=== PATIENT | male | born 1970 | race Asian ===

== ENCOUNTER 2023-03-30 14:53 | Emergency (ER) | payer OTHER, SELFPAY ==
--- NOTE | ~2023-03-30 | XR_ITS ---
EXAMINATION: XR CHEST CLINICAL INFORMATION: Chest pain COMPARISON: None available. TECHNIQUE: Frontal view of the chest was obtained. FINDINGS: Heart size normal with normal caliber pulmonary vessels. Lungs grossly clear given portable AP technique. I would recommend a well centered PA and lateral when clinically feasible. No pleural effusions are seen on this single view. public health policy analyst leads present. XR/XR chest 1V IMPRESSION: Within normal limits.
--- NOTE | 2023-03-30 14:59 | ED_ITS ---
HPI - Chest Pain General Chief Complaint: Chest Pain Stated Complaint: Chest pain - referred by urgent care Time Seen by Provider: 03/30/23 15:13 Source: patient Mode of arrival: ambulatory Limitations: no limitations History of Present Illness HPI narrative: Patient comes to the emergency room complaining of 2 weeks of intermittent chest pain. Patient states that about a week ago, it started out in the mornings when he goes outside for a walk, states that initially he thought it was secondary to inhaling cold air. Patient states that the pain subsided once he went inside his house and rested. However, over the last week, he still having the morning symptoms and now he is having chest pain at night that wakes him up from sleep lasting for 5-10 minutes. 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 Patient states the pain is not intense, he can still work with the pain. The chest pain itself subsided. After work, patient went to Urgent Care, an EKG was done which shows abnormalities in V1 V2, therefore they sent him to the ED for further evaluation and treatment. Patient denies any shortness of breath or syncopal episodes. No abdominal pain. Related Data Allergies Allergy/AdvReac Type Severity Reaction Status Date / Time No Known Allergies Allergy Verified 03/30/23 14:59 Review of Systems 2 Review of Systems: Constitutional : No Weight loss, No Fever, No Chills, No Night Sweats, No Fatigue, No Malaise ENT/Mouth : No Hearing loss, No Ear Pain, No Nasal Congestion, No Sinus Pain, No Hoarseness, No sore throat, No Rhinorrhea, No Swallowing Difficulty Eyes: No Eye Pain, No Swelling, No Redness, No Foreign Body, No Discharge, No Vision Changes Cardiovascular : Complaining of intermittent chest pains in the mornings and evenings lasting for about 5 minutes. No SOB, No Dyspnea on Exertion, No Orthopnea, No Edema, No Palpitations Respiratory : No Cough, No Sputum, No Wheezing, No Smoke Exposure, No Dyspnea Gastrointestinal : No Nausea, No Vomiting, No Diarrhea, No Constipation, No abdominal Pain, No Hematochezia, No Melena Genitourinary : no irregular bleeding, No Dysuria, No Urinary Frequency, No Hematuria, No Urinary Incontinence, No Urgency, No Flank Pain, No Urinary Flow Changes, No Hesitancy Musculoskeletal : No joint pain, No Myalgias, No Joint Swelling Skin : No Skin Lesions, No rash Neuro : No Weakness, No Numbness, No Paresthesias, No Loss of Consciousness, No Dizziness, No Headache Psych : No Anxiety/Panic, No Depression, No SI/HI/AH/VH, No Social Issues, Heme/Lymph: No Bruising, No Bleeding,No Lymphadenopathy Endocrine : No Polyuria, No Polydipsia, No Temperature Intolerance [facility] Past Medical History Medical History (Updated 03/30/23 @ 17:55 by Lissette Sow MD) Diet-controlled diabetes mellitus Social History Social History Smoked in Last 30 Days: No Use of substances other than those prescribed or required for medical reasons: No Advance Directives: No Advance Directives Information Provided: Yes Physical Exam 2 Vital Signs: Vital Signs: Last Vital Signs Temp 98.2 F 03/30/23 15:00 Pulse 83 03/30/23 16:33 Resp 16 03/30/23 16:33 BP 172/106 H 03/30/23 16:41 Pulse Ox 98 03/30/23 16:33 O2 Del Method Room Air 03/30/23 16:33 BMI result Body Mass Index 27.2 Const: Other: Appearance: Alert. Oriented X3. No acute distress. Eyes: Pupils equal, round and reactive to light. ENT: Pharynx normal. Neck: Normal inspection. Neck supple. No lymph nodes noted. No crepitus CVS: Normal heart rate and rhythm. Pulses normal. Normal S1 and S2 Respiratory: No respiratory distress. Breath sounds normal. No Wheezing. No rales Abdomen: Soft and nontender. No rigidity. No distention. Skin: Skin warm and dry. Normal skin color. Normal skin turgor. Extremities: No lower extremity edema. No Lacerations. No Rash Neuro: Oriented X 3. No motor deficit. No sensory deficit. Moving all extremities. No slurred speech. CN 2 through 12 grossly intact Psych: calm, cooperative, normal affect Course Course Course Narrative: RME: 52 yo M w/no sig PMHx presenting to the ED c/o chest pain x2 weeks, sent in by Urgent Care for abnormal EKG EKG with elevations in V1-V2. Dr. Sow aware Patient brought back to main ED immediately Full HPI, ROS and PE to be performed by primary ED provider. Medications Administered Discontinued Medications Generic Name Dose Route Start Last Admin Trade Name Karen PRN Reason Stop Dose Admin Aspirin 325 mg 03/30/23 15:32 03/30/23 15:47 Aspirin Enteric Coated 325 Mg Tablet.Dr BRONSON 03/30/23 15:33 325 mg ONCE ONE Administration Medical Decision Making Medical Decision Making [facility] Narrative: -interpretation of EKG: Normal sinus rhythm, heart rate 83, subtle waveform in V1 V2 concerning for brugada vs early stemi vs early repolarization, no T-wave inversion, QTC 432 -I discussed the EKG with Dr. Terry, possibly early repolarization, all troponins pending. -we do not have any old EKGs available -patient received aspirin on arrival, patient is completely asymptomatic at this time, blood pressure 160/104, heart rate 85, oxygen saturation 98% on room air -all labs are pending -at this time, 17:25, the lab called, patient's troponin is 1999.9 Patient remains asymptomatic. Vital stable -I discussed the troponin with Dr. Terry, heparin has been started, full- dose aspirin was given on arrival, Per Dr. terry, we will also give Brilinta 180 mg, metoprolol 25 mg p.o., atorvastatin 80 mg and recommened to transfer the patient as a STEMI -I spoke with the interventional tax preparer Dr. Calhoun, at [facility], we will send the patient to the CCU -bed assignment pending Differential Diagnosis Differential Diagnoses: The differential diagnosis associated with the presentation includes (Brugada syndrome, STEMI, NSTEMI, ACS) Admission/Observation Consideration of admission/observation: Escalation of care including admission/observation considered Consult Healthcare Provider Management of the patient was discussed with: Creative Perfumer Lab Data [facility] Lab Attestation statement: I reviewed the patient's lab results. 03/30/23 16:38 03/30/23 16:38 Labs: Lab Results 03/30/23 Range/Units 16:38 WBC 8.4 (4.8-10.8) X10*3/uL RBC 4.56 L (4.60-5.80) X10*6/uL Hgb 14.2 (14.0-18.0) g/dl Hct 40.5 L (42.0-52.0) % MCV 88.8 (80.0-98.0) fL MCH 31.1 (27.0-33.0) pg MCHC 35.1 (31.0-36.0) g/dl RDW 12.5 (11.0-16.0) % Plt Count 223 (160-400) X10*3/uL MPV 10.0 (9.4-12.4) fL Immature Gran % (Auto) 0.6 H (0.0-0.4) % Neut % (Auto) 48.9 (45-73) % Lymph % (Auto) 34.2 (20-40) % [place] % (Auto) 12.5 H (2-11) % Eos % (Auto) 2.6 (0-4) % Baso % (Auto) 1.2 (0-2) % Lymph # (Auto) 2.9 (1.2-4.9) X10*3/uL [place] # (Auto) 1.1 (0.1-1.2) X10*3/uL Eos # (Auto) 0.2 (0.0-0.4) X10*3/uL Baso # (Auto) 0.1 (0.0-0.2) X10*3/uL Abs Immat Gran (auto) 0.05 H (0.00-0.03) X10*3/uL Absolute Neuts (auto) 4.1 (2.0-8.3) x10*3/uL Absolute Nucleated RBC 0.000 (0.0-0.012) X10*3/uL Nucleated RBC % (auto) 0.0 (0.0-0.2) /100WBC Smear Tech's Comments VERIFIED Sodium 137 (135-145) mmol/L Potassium 4.1 (3.3-5.1) mmol/L Chloride 103 (96-108) mmol/L Carbon Dioxide 27 (22-29) mmol/L Anion Gap 11 L (12-20) BUN 17 H (9-16) mg/dL Creatinine 0.88 (0.5-1.4) mg/dL Estim Creat Clear Calc 86.5 Estimated GFR > 60 Random Glucose 197 H (60-115) mg/dL Calcium 9.1 (8.4-10.2) mg/dL Total Bilirubin 0.4 (0.0-1.0) mg/dL Direct Bilirubin 0.1 (0.0-0.5) mg/dL AST 22 (5-37) U/L ALT 30 (0-40) U/L Alkaline Phosphatase 101 (39-117) U/L Troponin I High Sens 1199.9 H* (<3.5-35.0) ng/L Total Protein 7.4 (6.5-8.0) g/dL Albumin 4.0 (3.5-5.0) g/dL Independent Interpretation I performed an independent interpretation of an: EKG and Plain X-Ray (My interpretation of chest x-ray: No infiltrates, no fracture ribs) Radiology Impression Discussion of test interpretation with radiology: I have reviewed the radiologist's reading. Radiologist Impression: Heart size normal with normal caliber pulmonary vessels. Lungs grossly clear given portable AP technique. I would recommend a well centered PA and lateral when clinically feasible. No pleural effusions are seen on this single view. media monitor leads present. XR/XR chest 1V IMPRESSION: Within normal limits. Critical Care Time Critical Care Time Critical Care Time: Yes Total Critical Care Time: 75 Attestation: I have personally provided critical care time. Time includes review of lab data, radiology results, discussion with consultants, and monitoring for potential decompensation. Intervention performed as documented. Discharge Plan Discharge Clinical Impression: ST elevation myocardial infarction (STEMI) Patient Disposition: [facility] Transfer Details: [facility] CCU, Dr. Calhoun
--- NOTE | 2023-03-30 14:59 | ECG_ITS ---
Test Reason : cp Blood Pressure : / mmHG Vent. Rate : 083 BPM Atrial Rate : 083 BPM P-R Int : 156 ms QRS Dur : 088 ms QT Int : 368 ms P-R-T Axes : 046 017 019 degrees QTc Int : 432 ms Normal sinus rhythm Possible Left atrial enlargement consider anteroseptal STEMI Nonspecific ST and T wave abnormality Abnormal ECG No previous ECGs available Referred By: Jean Lay Electronically Signed By:SIGIFREDO ANTHONY
[2023-03-30 15:00] VITALS: BP 160/104; PULSE 85; RESP 18; TEMP 36.8; O2SAT 98; BMI 27.2
[2023-03-30] MEDS: Aspirin Enteric Coated 325 MG TABLET.DR PO (15:47)
--- NOTE | 2023-03-30 15:49 | PC.NURSE ---
aox4, vss and up to date, nsr on the library monitor. pt comes in today w/ intermittent 8/10 generalized chest pain. denies radiation. denies lightheaded/dizzy/sob/any other sx. pt verbalizes pain level is a 0 at this time. no sob/wob noted. respirations even and unlabored. mediation administered per provider order. call ken placed within reach.
[2023-03-30 16:33] VITALS: BP 160/111; PULSE 83; RESP 16; O2SAT 98
[2023-03-30 16:41] VITALS: BP 172/106
--- NOTE | 2023-03-30 16:41 | PC.NURSE ---
labs obtained/sent to lab. vss and up to date aside from being hypertensive. pt verbalizes that he does not take bp meds regularly/denies recent life stressors/pain. will notify provider or bp results bilaterally. call ken placed within reach.
[2023-03-30 16:55] LABS: SCAN SMEAR FLAG 1
[2023-03-30 17:01] LABS: Basophils Absolute Auto 0.1 X10*3/uL (0.0-0.2); Basophils Percent Auto 1.2 % (0-2); Eosinophils Absolute Auto 0.2 X10*3/uL (0.0-0.4); Eosinophils Percent Auto 2.6 % (0-4); Hematocrit 40.5 % (42.0-52.0); Hemoglobin 14.2 g/dl (14.0-18.0); Imm Gran Abs Auto 0.05 X10*3/uL (0.00-0.03); Imm Gran Pct Auto 0.6 % (0.0-0.4); Lymphocytes Absolute Auto 2.9 X10*3/uL (1.2-4.9); Lymphocytes Percent Auto 34.2 % (20-40); MANUAL DIFF FLAG SCAN; Mean Corpuscular HGB Conc 35.1 g/dl (31.0-36.0); Mean Corpuscular Hemoglobin 31.1 pg (27.0-33.0); Mean Corpuscular Volume 88.8 fL (80.0-98.0); Monocytes Absolute Auto 1.1 X10*3/uL (0.1-1.2); Monocytes Percent Auto 12.5 % (2-11); Neutrophils Absolute Auto 4.1 x10*3/uL (2.0-8.3); Neutrophils Percent Auto 48.9 % (45-73); Platelet Count 223 X10*3/uL (160-400); Red Blood Count 4.56 X10*6/uL (4.60-5.80); Red Cell Distribution Width 12.5 % (11.0-16.0); White Blood Count 8.4 X10*3/uL (4.8-10.8)
[2023-03-30 17:10] LABS: Alanine Aminotransferase 30 U/L (0-40); Alkaline Phosphatase 101 U/L (39-117); Anion Gap 11 (12-20); Aspartate Amino Transferase 22 U/L (5-37); Bilirubin Direct 0.1 mg/dL (0.0-0.5); Bilirubin Total 0.4 mg/dL (0.0-1.0); Blood Urea Nitrogen 17 mg/dL (9-16); Calcium 9.1 mg/dL (8.4-10.2); Carbon Dioxide 27 mmol/L (22-29); Chloride 103 mmol/L (96-108); Creatinine Clr Calc Pharmacy 86.5; Estimated Glomerular Filt Rate > 60; Glucose Random 197 mg/dL (60-115); Potassium 4.1 mmol/L (3.3-5.1); Sodium 137 mmol/L (135-145); Total Protein 7.4 g/dL (6.5-8.0)
[2023-03-30 17:25] LABS: Troponin-I High Sensitivity 1199.9 ng/L (<3.5-35.0)
--- NOTE | 2023-03-30 17:27 | ECG_ITS ---
Test Reason : elevated troponin Blood Pressure : / mmHG Vent. Rate : 081 BPM Atrial Rate : 081 BPM P-R Int : 154 ms QRS Dur : 086 ms QT Int : 372 ms P-R-T Axes : 044 022 001 degrees QTc Int : 432 ms Normal sinus rhythm Possible Left atrial enlargement Nonspecific ST and T wave abnormality Abnormal ECG When compared with ECG of 30-MAR-2023 15:09, improved ST elevation Referred By: Lissette Sow Electronically Signed By:SIGIFREDO ANTHONY
[2023-03-30 17:29] LABS: SLIDE REVIEW VERIFIED
--- NOTE | 2023-03-30 17:50 | ECG_ITS ---
Test Reason : REPEAT EKG Blood Pressure : / mmHG Vent. Rate : 083 BPM Atrial Rate : 083 BPM P-R Int : 148 ms QRS Dur : 086 ms QT Int : 370 ms P-R-T Axes : 048 019 012 degrees QTc Int : 434 ms AGE AND GENDER SPECIFIC ECG ANALYSIS Normal sinus rhythm Possible Left atrial enlargement ST elevation consider anterior injury or acute infarct ACUTE IN / STEMI Abnormal ECG When compared with ECG of 30-MAR-2023 17:31, ST elevation more prominent Referred By: Lissette Sow Electronically Signed By:SIGIFREDO ANTHONY
--- NOTE | 2023-03-30 17:58 | PC.NURSE ---
18gIVs placed in the AC's bilaterally w/o complications - labs drawn and sent to lab. pt still c/o no pain at this time. no sob/wob noted. denies headache/lightheadedness/dizziness. respirations even and unlabored. call ken placed within reach.
[2023-03-30 18:00] VITALS: BP 173/116; PULSE 78; RESP 18; TEMP 36.8; O2SAT 99
[2023-03-30] MEDS: Atorvastatin Calcium 80 MG TABLET PO (18:04)
[2023-03-30] MEDS: Metoprolol Tartrate 25 MG TABLET PO (18:04)
[2023-03-30] MEDS: Ticagrelor 90 MG TABLET 180 MG PO (18:04)
[2023-03-30] MEDS: Heparin Sodium,Porcine/1/2NS 25,000 UNIT/250 ML IV.SOLN 10.71 UNIT IVCONT (18:08)
[2023-03-30 18:09] LABS: INTERNATIONAL NORM RATIO 0.9 (0.9-1.1)
--- NOTE | 2023-03-30 18:10 | PC.NURSE ---
Addendum entered by Jennifer Manley 03/30/23 18:49: coagulation studies now back at this time. heparin drip continues to run at 14u/kg/hr at this time. ems still bedside awaiting acceptance to CCU at [facility]. pt remains on the court monitor w/ vital signs stable. respirations remain even and unlabored. call ken placed within reach. Original Note: ems arrived to transport patient on heparin drip to [facility], drip needed to be hung before PTT had returned per req of provider.
[2023-03-30 18:12] LABS: Partial Thromboplastin Time 28.8 SEC (26.0-36.4)
--- NOTE | 2023-03-30 18:18 | PC.NURSE ---
dr. mcneal awaiting acceptance to [facility]. ems in room at this time. pt still denying pain, vss and up to date. denies any sx at this time. no sob/wob noted. respirations even and unlabored.
[2023-03-30 18:28] LABS: COVID-19 Test Negative (Negative); IDNOW Serial# BCCEAD1C
--- NOTE | 2023-03-30 18:57 | PC.NURSE ---
pt transferring to [facility] via BLS at this time.
--- NOTE | 2023-03-30 19:07 | PC.NURSE ---
report given to EVER Hernández - room 10 - MM3 at [facility].
== END 2023-03-30 19:09 | disposition short-term general hospital (02) ==
PROVIDERS: Emergency Provider Emergency Medicine; PCP Family Medicine
DX: I21.3 ST elevation (STEMI) myocardial infarction of unspecified site (principal); E11.9 Type 2 diabetes mellitus without complications; Z11.52 Encounter for screening for COVID-19
CPT/HCPCS: 36415; 71045; 80048; 80076; 84484; 85025; 85610; 85730; 87635; 93005; 96374; 99285; J1644

== ENCOUNTER → 2023-03-30 14:59 | Outpatient (BNV) | payer OTHER, SELFPAY | PROVIDERS: Emergency Provider Emergency Medicine; PCP Family Medicine; Visit Provider Internal Medicine | DX: R94.31 Abnormal electrocardiogram [ECG] [EKG] (principal); I21.3 ST elevation (STEMI) myocardial infarction of unspecified site | CPT/HCPCS: 93010 ==

== ENCOUNTER → 2023-03-31 23:59 | Outpatient (BNV) | payer OTHER, SELFPAY | PROVIDERS: PCP Family Medicine; Visit Provider Internal Medicine Cardiovascular Disease | DX: I21.4 Non-ST elevation (NSTEMI) myocardial infarction (principal); I25.10 Atherosclerotic heart disease of native coronary artery without angina pectoris | CPT/HCPCS: 92928; 93458; 99152 ==

== ENCOUNTER 2023-06-29 12:57 | Outpatient (AMB) | payer OTHER, SELFPAY ==
--- NOTE | 2023-06-29 12:59 | MHC.OFFVIS ---
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 History of uncontrolled diabetes/hypertension. It seems he really does not have any good follow-up in the past. Couple months ago came with chest pain and found to have ST elevations and sent to [facility]. Treated as NSTEMI. He underwent cardiac catheterization and circumflex stenting. After that, he has not had any further chest pains. Mostly feels well. Blood pressure is still high today and he states he has not taken any meds yet. Otherwise, no specific cardiac symptoms. [facility] Medical History (Updated 06/29/23 @ 13:35 by Dom Lee MD) Essential hypertension Type 2 diabetes mellitus with unspecified complications NSTEMI (non-ST elevated myocardial infarction) Atherosclerotic cardiovascular disease Diet-controlled diabetes mellitus Surgical History (Updated 06/29/23 @ 13:04 by Jordyn Yost) Hx of cardiac cath Family History (Updated 06/29/23 @ 13:04 by Jordyn Yost) Mother No problems noted. Father No problems noted. Brother Heart problem Social History (Updated 06/29/23 @ 13:04 by Jordyn Yost) Alcohol intake: current Alcohol intake frequency: holidays/special occasions only Patient Tobacco Use Status: Never used Tobacco Review of Systems Const Denies chills, Denies daytime sleepiness, Denies fatigue, Denies fever(s), Denies frequent falls, Denies night sweats, Denies snoring, Denies weakness, Denies weight gain and Denies weight loss Eyes Denies loss of vision ENT Denies dizziness and Denies hearing loss Card Denies chest pain, Denies chest pain with activity, Denies syncope, Denies rapid heart rate, Denies edema, Denies claudication, Denies leg edema, Denies lightheadedness, Denies palpitations, Denies dyspnea, Denies dyspnea on exertion and Denies orthopnea Resp Denies cough, Denies excessive phlegm production, Denies dyspnea, Denies dyspnea on exertion, Denies snoring and Denies wheezing GI Denies abdominal pain, Denies hematochezia, Denies change in bowel habits, Denies change in stool character, Denies heartburn, Denies nausea and Denies vomiting Denies hematuria, Denies dysuria and Denies urinary frequency Musc Denies arthralgias, Denies muscle weakness, Denies numbness and Denies tingling Skin/Breast Denies nail changes and Denies rash Neuro Denies Abnormal speech present, Denies dizziness, Denies syncope, Denies frequent falls, Denies loss of vision, Denies memory loss, Denies numbness, Denies tingling and Denies weakness Psych Denies depression and Denies memory loss Endo Denies fatigue and Denies palpitations Aller/Immun Denies wheezing Physical Exam Vital Signs: Last Vital Signs Pulse 75 06/29/23 13:00 BP 162/88 H 06/29/23 13:00 BMI result Body Mass Index 25.9 Const General: comfortable and no acute distress Orientation/consciousness: patient oriented x3 HEENT Other: Unremarkable Head: Yes normal to inspection Neck Neck: Yes normal visual inspection Chest Chest palpation & inspection: normal inspection of the chest Resp Auscultation: clear to auscultation bilaterally Cardio Palpation: normal PMI Heart sounds: S1 normal heart sound present, S2 normal heart sound present, no gallops, no murmurs and no rubs GI Palpation (GI): Soft to palpation Back/Spine/Pelvis Other: unremarkable Skin General skin exam: no rashes or lesions noted Neuro General: patient oriented x3 Speech: No Abnormal speech present Extrem General: Yes normal to inspection Psych Mental Status: mental status grossly normal Assessment & Plan Assessment & Plan (1) Atherosclerotic cardiovascular disease: Code(s): I25.10 - Atherosclerotic heart disease of [place] coronary artery without angina pectoris (2) NSTEMI (non-ST elevated myocardial infarction): Code(s): I21.4 - Non-ST elevation (NSTEMI) myocardial infarction (3) Type 2 diabetes mellitus with unspecified complications: Code(s): E11.8 - Type 2 diabetes mellitus with unspecified complications (4) Essential hypertension: Code(s): I10 - Essential (primary) hypertension Plan Echocardiogram from [facility]-LVEF 50-55%. Inferolateral/inferior basilar hypokinesis. Cardiac catheterization-proximal circumflex with 80% stenosis status post PCI. LAD with mild diffuse disease. First diagonal with ostial 99% stenosis, small vessel. Distal LAD with 40-50% stenosis. RCA with moderate diffuse disease. PDA with diffuse stenosis. Overall, poorly controlled diabetes hypertension status post NSTEMI and PCI to circumflex. Does have residual CAD as described above. Aggressive risk factor modification. Long-term aspirin. Brilinta for 1 year. Blood pressures poorly regulated and he states he has not taken his meds today. Strongly advised him to start taking them. If he indeed becomes compliant, then may adjust. For diabetes, listed to be on Farxiga and metformin. Continue high-dose statins. Last available LDL is 98 mg/dL. Possibly recheck in the future on statins. He is doing cardiac rehabilitation [facility]. We will get another echocardiogram and follow-up in 3 months. Orders: Orders CA echo transthoracic complete Today I25.10 - Atherosclerotic heart disease of [place] coronary artery without angina pectoris Coding Level of Care Code New Pt Level 4 (96839) Diagnoses Atherosclerotic cardiovascular disease I25.10 NSTEMI (non-ST elevated myocardial infarction) I21.4 Type 2 diabetes mellitus with unspecified complications E11.8 Essential hypertension I10
[2023-06-29 13:00] VITALS: BP 162/88; PULSE 75; BMI 25.9
== END 2023-06-29 13:25 | disposition home or self-care (01) ==
PROVIDERS: PCP Family Medicine; Visit Provider Internal Medicine
DX: I25.10 Atherosclerotic heart disease of native coronary artery without angina pectoris (principal); I21.4 Non-ST elevation (NSTEMI) myocardial infarction; I10 Essential (primary) hypertension; E11.8 Type 2 diabetes mellitus with unspecified complications
CPT/HCPCS: 99214

== ENCOUNTER → 2023-06-29 12:57 | Outpatient (BNVA) | payer OTHER, SELFPAY | PROVIDERS: PCP Family Medicine; Visit Provider Internal Medicine | DX: I25.10 Atherosclerotic heart disease of native coronary artery without angina pectoris (principal); I10 Essential (primary) hypertension; I21.4 Non-ST elevation (NSTEMI) myocardial infarction | CPT/HCPCS: 99212 ==

== ENCOUNTER → 2023-07-28 11:46 | Outpatient (REF) | payer OTHER, SELFPAY ==
--- NOTE | 2023-07-28 11:50 | CA_ITS ---
Transthoracic Echocardiogram Patient (Last, First, Middle): Jayro Franco, Gender: Male Date of : 1970 Age: 52 Procedure Date: 07/28/2023 Procedure Type: Transthoracic Echocardiogram Location: OP Height: 167.64 cm Weight: 73.48 kg BSA: 1.83 m2 Heart Rate: bpm BP: 130 / 78 mmHg Greige Goods Examiner: TO Referring MD: Dom Lee MD Symptoms: I25.10 - Atherosclerotic heart disease of [place] coronary artery without... Study Quality: Adequate Conclusions: - 1. Low normal LV ejection fraction 50-55% with impaired relaxation filling pattern with mild asymmetric septal hypertrophy 2. Normal cardiac valvular Doppler 3. Mildly dilated ascending aorta at 3.7 cm 4. No gross pericardial effusion Findings Left Ventricle Normal left ventricular cavity size. There is normal left ventricular wall thickness. The left ventricular systolic function is low normal. The visually estimated ejection fraction is between 50-55%. Spectral Doppler is indicative of an impaired relaxation filling pattern. E/E prime ratio is between 8 and 15 consistent with indeterminate filling pressures. There is mild septal asymmetric hypertrophy. Peak GLS is -16.2%, mildly reduced. Right Ventricle Normal right ventricular cavity size and systolic function. Atria Both atria are normal in size. There is no evidence of interatrial shunt. Aortic Valve There is mild calcification of the aortic valve. There is mild thickening of the aortic valve. There is no aortic valve stenosis. There is no aortic valve regurgitation. Mitral Valve There is mild anterior and posterior mitral leaflet thickening. There is bowing of the posterior mitral leaflet without obvious prolapse. There is trace mitral valve regurgitation. There is no mitral valve stenosis. Pulmonic Valve The pulmonic valve was not well visualized. Tricuspid Valve Likely normal tricuspid valve structure and function. Tricuspid regurgitation envelope is inadequate for calculation of right ventricular systolic pressure. Normal right atrial pressure. Great Vessels The pulmonary artery was not well visualized. There is mild dilatation of the ascending aorta measuring 3.70 cm. Venous The inferior vena cava is normal in size and collapses greater than 50% with inspiration. Pericardium/Pleural There is no evidence of pericardial effusion. Prior Study Comparison No prior study available for comparison. Measurements 2D Linear Measurements IVSd: 1.39 0.6-0.9/0.6-1.0 cm LVIDd: 4.58 3.9-5.3/4.2-5.9 cm LVIDd Index: 2.50 2.4-3.2/2.2-3.1 cm/m2 LVIDs: 3.28 2.0-3.6 cm LVPWd: 1.06 0.7-1.1 cm LA Diam: 3.60 2.7-3.8/3.0-4.0 cm LAIDs Index: 1.97 1.5-2.3 cm/m2 LV Mass: 261.41 67-162/88-224 g LV Mass Index: 142.85 43-95/49-115 g/m2 LVOT Diam: 2.20 3.0+(-)1.3 cm 2D Systolic Function EF 4C: 55.00 >55% EF 2C: 54.70 >55% EF BiP: 53.90 >55% Mitral Valve MV Pk E: 0.60 MV PK A: 0.70 MV Decel Time: 197.00 E/A: 0.90 E'Lateral: 8.27 E'Medial: 5.55 E/E' Med: 10.70 E/E' Lat: 7.20 PHT: 58.00 MVA PHT: 3.79 Decel Carroll: 3.03 Aortic Valve AoV Pk Ganesh: 1.25 AoV Mn Ganesh: 0.83 AoV VTI: 0.27 AoV Pk Grad: 6.00 Aov Mn Grad: 3.00 JERICHO Cont.VTI: 2.67 LVOT LVOT Pk Ganesh: 0.82 LVOT Mn Ganesh: 0.53 LVOT VTI: 0.19 LVOT Pk Grad: 3.00 LVOT Mn Grad: 1.00 LVOT Diam: 2.20 LVOT Area: 3.80 Diastolic Function MV Pk E: 0.60 MV Pk A: 0.70 E/A: 0.90 E'Medial: 5.55 E/E' Med: 10.70 E' Laterial: 8.27 E/E' Lat: 7.20 Right Ventricle TAPSE (mm): 19.10 TVS' Ganesh: 10.20 Great Vessels Aorta Sinus of Valsalva: 3.70 2.0-3.[address] [place]: 2.79 1.7-3.4 cm Ao Asc: 3.70 2.1-3.4 cm Ao Arch: 2.90 Updated in Other Vendor System with Status of Final Andre Montalvo MD electronically signed on 07/29/2023 3:05:06 PM with status of Final
== END ==
LOC: HO.CARD 11:46
PROVIDERS: PCP Family Medicine; Visit Provider Internal Medicine
DX: I25.10 Atherosclerotic heart disease of native coronary artery without angina pectoris (principal)
CPT/HCPCS: 93306; 93356

== ENCOUNTER → 2023-07-28 11:50 | Outpatient (BNV) | payer OTHER, SELFPAY | PROVIDERS: PCP Family Medicine; Visit Provider Internal Medicine Cardiovascular Disease | DX: I25.10 Atherosclerotic heart disease of native coronary artery without angina pectoris (principal) | CPT/HCPCS: 93306; 93356 ==

== ENCOUNTER 2023-10-31 13:41 | Outpatient (AMB) | payer OTHER, SELFPAY ==
[2023-10-31 13:45] VITALS: BP 138/68; PULSE 88; BMI 25.6
--- NOTE | 2023-10-31 13:45 | MHC.OFFVIS ---
Vital Signs 10/31/23 13:45 Height 5 ft 6 in Weight 158 lb 11.725 oz BMI 25.6 BP 138/68 Blood Pressure Location Lt brachial Position Sitting Pulse 88 Pulse Source Pulse Oximeter Intake Visit Reasons: 3 mth f/up Allergies No Known Allergies Allergy (Verified 06/29/23 13:00) Medication List - Last Reconciled 10/31/23 by Dom Lee MD aspirin (Adult Aspirin Regimen) 81 mg PO DAILY atorvastatin 80 mg PO BEDTIME carvedilol 6.25 mg PO BID dapagliflozin propanediol (Farxiga) 10 mg PO DAILY metformin 500 mg PO DAILY ticagrelor (Brilinta) 90 mg PO BID valsartan 160 mg PO DAILY HPI Comments Details: Jayro returns for follow-up regarding coronary artery disease. He has a history of uncontrolled diabetes hypertension. Not much of follow-up in the past. In 03/23/2023, admitted for chest pain. Had NSTEMI. Underwent cardiac catheterization circumflex stenting. Since that time, he states he is actually doing quite good. There was noncompliance in the past but these days he states he is taking medications regularly without issues. No further cardiac symptoms. [facility] Medical History (Updated 06/29/23 @ 13:35 by Dom Lee MD) Essential hypertension Type 2 diabetes mellitus with unspecified complications NSTEMI (non-ST elevated myocardial infarction) Atherosclerotic cardiovascular disease Diet-controlled diabetes mellitus Surgical History (Updated 06/29/23 @ 13:04 by Jordyn Yost) Hx of cardiac cath Family History (Updated 06/29/23 @ 13:04 by Jordyn Yost) Mother No problems noted. Father No problems noted. Brother Heart problem Social History (Updated 06/29/23 @ 13:04 by Jordyn Yost) Alcohol intake: current Alcohol intake frequency: holidays/special occasions only Patient Tobacco Use Status: Never used Tobacco Review of Systems Const Denies weakness ENT Denies dizziness Card Denies chest pain, Denies chest pain with activity, Denies syncope, Denies rapid heart rate, Denies pedal edema, Denies edema, Denies leg edema, Denies lightheadedness, Denies palpitations, Denies dyspnea, Denies dyspnea on exertion and Denies orthopnea Resp Denies cough, Denies dyspnea and Denies dyspnea on exertion GI Denies hematochezia and Denies change in stool character Musc Denies abnormal gait, Denies muscle cramps, Denies muscle weakness, Denies numbness, Denies radiating pain into limb and Denies tingling Neuro Denies abnormal gait, Denies dizziness, Denies syncope, Denies numbness, Denies tingling and Denies weakness Endo Denies palpitations Physical Exam Vital Signs: Last Vital Signs Pulse 88 10/31/23 13:45 BP 138/68 10/31/23 13:45 BMI result Body Mass Index 25.6 Const General: comfortable and no acute distress Orientation/consciousness: patient oriented x3 HEENT Other: Unremarkable Head: Yes normal to inspection Neck Neck: Yes normal visual inspection Chest Chest palpation & inspection: normal inspection of the chest Resp Auscultation: clear to auscultation bilaterally Cardio Palpation: normal PMI Heart sounds: S1 normal heart sound present, S2 normal heart sound present, no gallops, no murmurs and no rubs GI Palpation (GI): Soft to palpation Back/Spine/Pelvis Other: unremarkable Skin General skin exam: no rashes or lesions noted Neuro General: patient oriented x3 Extrem General: Yes normal to inspection Psych Mental Status: mental status grossly normal Assessment & Plan Assessment & Plan (1) Atherosclerotic cardiovascular disease: Code(s): I25.10 - Atherosclerotic heart disease of [place] coronary artery without angina pectoris Category: Medical (2) NSTEMI (non-ST elevated myocardial infarction): Code(s): I21.4 - Non-ST elevation (NSTEMI) myocardial infarction Category: Medical (3) Type 2 diabetes mellitus with unspecified complications: Code(s): E11.8 - Type 2 diabetes mellitus with unspecified complications Category: Medical (4) Essential hypertension: Code(s): I10 - Essential (primary) hypertension Category: Medical Plan Cardiac studies reviewed. [facility]-LVEF 50-55%. Inferolateral/inferior basilar hypokinesis. In the repeat echocardiogram, LVEF is 50-55% and there is no description wall motion abnormality. Cardiac catheterization-03/2023-proximal circumflex with 80% stenosis status post PCI. LAD with mild diffuse disease. First diagonal with ostial 99% stenosis, small vessel. Distal LAD with 40-50% stenosis. RCA with moderate diffuse disease. PDA with diffuse stenosis. Overall, diabetic, hypertensive with coronary disease, status post NSTEMI and PCI to circumflex. There is residual disease as described above. Currently, patient states he is much more compliant. Continue long-term aspirin. Brilinta for 1 year at least. Blood pressure seems better than before. He is on carvedilol and valsartan. We can follow the readings and make further adjustments in the future. With regard to diabetes, he is on Farxiga and metformin. Most recent hemoglobin A1c is 6.6% and he showed that in his [facility] patient portal. With regard to statins, again per his patient portal results, LDL 41 mg/dL and triglycerides 132 mg/dL. He is on high-dose statins. We will see him in follow-up in 6 months time. Coding Level of Care Code Est Pt Level 4 (53689) Diagnoses Atherosclerotic cardiovascular disease I25.10 NSTEMI (non-ST elevated myocardial infarction) I21.4 Type 2 diabetes mellitus with unspecified complications E11.8 Essential hypertension I10
== END 2023-10-31 13:59 | disposition home or self-care (01) ==
PROVIDERS: PCP Family Medicine; Visit Provider Internal Medicine
DX: I25.10 Atherosclerotic heart disease of native coronary artery without angina pectoris (principal); I21.4 Non-ST elevation (NSTEMI) myocardial infarction; E11.8 Type 2 diabetes mellitus with unspecified complications; I10 Essential (primary) hypertension
CPT/HCPCS: 99214

== ENCOUNTER → 2023-10-31 13:41 | Outpatient (BNVA) | payer OTHER, SELFPAY | PROVIDERS: PCP Family Medicine; Visit Provider Internal Medicine | DX: I25.10 Atherosclerotic heart disease of native coronary artery without angina pectoris (principal); I10 Essential (primary) hypertension; I21.4 Non-ST elevation (NSTEMI) myocardial infarction; E11.8 Type 2 diabetes mellitus with unspecified complications | CPT/HCPCS: 99212 ==

== ENCOUNTER 2024-04-26 09:41 | Outpatient (AMB) | payer OTHER, SELFPAY ==
--- NOTE | 2024-04-26 09:51 | A.OFFVIS_ITS ---
Vital Signs 04/26/24 09:53 Height 5 ft 6 in Weight 170 lb 10.205 oz BMI 27.5 BP 144/86 H Blood Pressure Location Lt brachial Position Sitting Pulse 75 Intake Visit Reasons: 6 mth f/up Paper Sorter Required: No Accompanied by: Self / Same As Patient Allergies No Known Allergies Allergy (Verified 06/29/23 13:00) Medication List - Last Reconciled 04/26/24 by Dom Lee MD aspirin (Adult Aspirin Regimen) 81 mg PO DAILY atorvastatin 80 mg PO BEDTIME carvedilol 6.25 mg PO BID dapagliflozin propanediol (Farxiga) 10 mg PO DAILY metformin 500 mg PO DAILY ticagrelor (Brilinta) 90 mg PO BID valsartan 160 mg PO DAILY HPI Comments Details: Jayro returns for follow-up regarding coronary artery disease. He has a history of uncontrolled diabetes and hypertension. Not much of follow-up in the past. In 03/2023, admitted for chest pain. Had NSTEMI. Underwent cardiac catheterization and circumflex stenting. Overall, he states he feels fine. Much more compliant these days and he states he takes everything regularly. No cardiac symptoms. [facility] Medical History (Updated 06/29/23 @ 13:35 by Dom Lee MD) Essential hypertension Type 2 diabetes mellitus with unspecified complications NSTEMI (non-ST elevated myocardial infarction) Atherosclerotic cardiovascular disease Diet-controlled diabetes mellitus Surgical History Hx of cardiac cath Family History Mother No problems noted. Father No problems noted. Brother Heart problem Social History Alcohol intake: current Alcohol intake frequency: holidays/special occasions only Patient Tobacco Use Status: Never used Tobacco Review of Systems Const Denies chills, Denies fatigue, Denies fever(s), Denies weight gain and Denies weight loss ENT Denies dizziness Card Denies chest pain, Denies leg edema, Denies lightheadedness, Denies palpitations, Denies dyspnea on exertion, Denies orthopnea and Denies other Resp Denies cough and Denies dyspnea on exertion GI Denies hematochezia and Denies change in stool character Musc Denies abnormal gait, Denies muscle weakness, Denies numbness, Denies radiating pain into limb and Denies tingling Neuro Denies abnormal gait, Denies dizziness, Denies numbness and Denies tingling Endo Denies fatigue and Denies palpitations Physical Exam Vital Signs: Last Vital Signs Pulse 75 04/26/24 09:53 BP 144/86 H 04/26/24 09:53 BMI result Body Mass Index 27.5 Const General: comfortable and no acute distress Orientation/consciousness: patient oriented x3 HEENT Other: Unremarkable Head: Yes normal to inspection Neck Neck: Yes normal visual inspection Chest Chest palpation & inspection: normal inspection of the chest Resp Auscultation: clear to auscultation bilaterally Cardio Palpation: normal PMI Heart sounds: S1 normal heart sound present, S2 normal heart sound present, no gallops, no murmurs and no rubs GI Palpation (GI): Soft to palpation Back/Spine/Pelvis Other: unremarkable Skin General skin exam: no rashes or lesions noted Neuro General: patient oriented x3 Extrem General: Yes normal to inspection Psych Mental Status: mental status grossly normal Office Procedures EKG Details: EKG with underlying sinus rhythm at 75/Min; ST elevation in the anterior as well as lateral leads, possible early repolarization type changes. Mostly similar to the last EKG but in the current study, lateral changes are slightly more prominent. [id number], Complete Assessment & Plan Assessment & Plan (1) Atherosclerotic cardiovascular disease: Code(s): I25.10 - Atherosclerotic heart disease of [place] coronary artery without angina pectoris Category: Medical (2) NSTEMI (non-ST elevated myocardial infarction): Code(s): I21.4 - Non-ST elevation (NSTEMI) myocardial infarction Category: Medical (3) Type 2 diabetes mellitus with unspecified complications: Code(s): E11.8 - Type 2 diabetes mellitus with unspecified complications Category: Medical (4) Essential hypertension: Code(s): I10 - Essential (primary) hypertension Category: Medical Plan Cardiac studies reviewed. Echocardiogram from [facility]-LVEF 50-55%. Inferolateral/inferior basilar hypokinesis. In the repeat echocardiogram, LVEF is 50-55% and there is no description wall motion abnormality. Cardiac catheterization-03/2023-proximal circumflex with 80% stenosis status post PCI. LAD with mild diffuse disease. First diagonal with ostial 99% stenosis, small vessel. Distal LAD with 40-50% stenosis. RCA with moderate diffuse disease. PDA with diffuse stenosis. Overall, diabetes, hypertension, coronary disease, NSTEMI, PCI to circumflex, residual coronary disease, clinically asymptomatic. Continue long-term aspirin. May stop Brilinta. He can finish the current supply he has for a few more weeks and then stop that. With regard to blood pressure, borderline high. Increase carvedilol dose. Also on valsartan. With regard to diabetes, on Farxiga/metformin. Last available hemoglobin A1c is 6.6%. With regard to statins, again per his patient portal results, LDL 41 mg/dL and triglycerides 132 mg/dL. He is on high-dose statins. We will request labs from his PCP/Cece. Follow-up in 6 months. Medications: New carvedilol (Coreg) must administer with a meal/food 12.5 mg PO BID 180 tabs 3RF 90 days Coding Level of Care Code Est Pt Level 4 (48212) Diagnoses Atherosclerotic cardiovascular disease I25.10 NSTEMI (non-ST elevated myocardial infarction) I21.4 Type 2 diabetes mellitus with unspecified complications E11.8 Essential hypertension I10 CPT Codes EKG - CPT: 64934-[id number], Complete ([id number])
[2024-04-26 09:53] VITALS: BP 144/86; PULSE 75; BMI 27.5
== END 2024-04-26 10:13 | disposition home or self-care (01) ==
PROVIDERS: PCP Family Medicine; Visit Provider Internal Medicine
DX: I25.10 Atherosclerotic heart disease of native coronary artery without angina pectoris (principal); I21.4 Non-ST elevation (NSTEMI) myocardial infarction; E11.8 Type 2 diabetes mellitus with unspecified complications; I10 Essential (primary) hypertension
CPT/HCPCS: 93010; 99214

== ENCOUNTER → 2024-04-26 09:41 | Outpatient (BNVA) | payer OTHER, SELFPAY | PROVIDERS: PCP Family Medicine; Visit Provider Internal Medicine | DX: I25.10 Atherosclerotic heart disease of native coronary artery without angina pectoris (principal); I10 Essential (primary) hypertension; E11.8 Type 2 diabetes mellitus with unspecified complications; I25.2 Old myocardial infarction; R94.31 Abnormal electrocardiogram [ECG] [EKG]; I51.7 Cardiomegaly | CPT/HCPCS: 93005; 99212 ==

== ENCOUNTER 2024-10-30 08:48 | Outpatient (AMB) | payer OTHER, SELFPAY ==
[2024-10-30 08:58] VITALS: BP 130/68; PULSE 74; BMI 27.0
--- NOTE | 2024-10-30 08:58 | MHC.OFFVIS ---
Vital Signs 10/30/24 08:58 Height 5 ft 6 in Weight 167 lb 8.821 oz BMI 27.0 BP 130/68 Blood Pressure Location Lt brachial Position Sitting Pulse 74 Pulse Source Pulse Oximeter Intake Visit Reasons: 6m follow up Allergies No Known Allergies Allergy (Verified 06/29/23 13:00) Medication List - Last Reconciled 10/30/24 by Dom Lee MD aspirin (Adult Aspirin Regimen) 81 mg PO DAILY atorvastatin 80 mg PO BEDTIME carvedilol (Coreg) 12.5 mg PO BID 90 days dapagliflozin propanediol (Farxiga) 10 mg PO DAILY metformin 500 mg PO DAILY valsartan 160 mg PO DAILY HPI Comments Details: Jayro returns for follow-up regarding coronary artery disease. He has a history of uncontrolled diabetes and hypertension. Not much of follow-up in the past. In 03/2023, admitted for chest pain. Had NSTEMI. Underwent cardiac catheterization and circumflex stenting. Overall, he states he feels good. Blood pressure is still on the higher side apparently before he takes his meds it can be in the 140s-150s. After he takes his meds, it gets better. [facility] Medical History (Updated 06/29/23 @ 13:35 by Dom Lee MD) Essential hypertension Type 2 diabetes mellitus with unspecified complications NSTEMI (non-ST elevated myocardial infarction) Atherosclerotic cardiovascular disease Diet-controlled diabetes mellitus Surgical History Hx of cardiac cath Family History Mother No problems noted. Father No problems noted. Brother Heart problem Social History Alcohol intake: current Alcohol intake frequency: holidays/special occasions only Patient Tobacco Use Status: Never used Tobacco Review of Systems Const Denies weakness ENT Denies dizziness Card Reports no additional complaints, Denies chest pain, Denies chest pain with activity, Denies syncope, Denies rapid heart rate, Denies pedal edema, Denies edema, Denies leg edema, Denies lightheadedness, Denies palpitations, Denies dyspnea, Denies dyspnea on exertion and Denies orthopnea Resp Denies cough, Denies dyspnea and Denies dyspnea on exertion GI Denies hematochezia and Denies change in stool character Musc Denies abnormal gait, Denies muscle cramps, Denies muscle weakness, Denies numbness, Denies radiating pain into limb and Denies tingling Neuro Denies abnormal gait, Denies dizziness, Denies syncope, Denies numbness, Denies tingling and Denies weakness Endo Denies palpitations Physical Exam Vital Signs: Last Vital Signs Pulse 74 10/30/24 08:58 BP 130/68 10/30/24 08:58 BMI result Body Mass Index 27.0 Const General: comfortable and no acute distress Orientation/consciousness: patient oriented x3 HEENT Other: Unremarkable Head: Yes normal to inspection Neck Neck: Yes normal visual inspection Chest Chest palpation & inspection: normal inspection of the chest Resp Auscultation: clear to auscultation bilaterally Cardio Palpation: normal PMI Heart sounds: S1 normal heart sound present, S2 normal heart sound present, no gallops, no murmurs and no rubs GI Palpation (GI): Soft to palpation Back/Spine/Pelvis Other: unremarkable Skin General skin exam: no rashes or lesions noted Neuro General: patient oriented x3 Extrem General: Yes normal to inspection Psych Mental Status: mental status grossly normal Assessment & Plan Assessment & Plan (1) Atherosclerotic cardiovascular disease: Code(s): I25.10 - Atherosclerotic heart disease of [place] coronary artery without angina pectoris Category: Medical (2) NSTEMI (non-ST elevated myocardial infarction): Code(s): I21.4 - Non-ST elevation (NSTEMI) myocardial infarction Category: Medical (3) Type 2 diabetes mellitus with unspecified complications: Code(s): E11.8 - Type 2 diabetes mellitus with unspecified complications Category: Medical (4) Essential hypertension: Code(s): I10 - Essential (primary) hypertension Category: Medical Plan Cardiac studies reviewed. Echocardiogram from [facility]-LVEF 50-55%. Inferolateral/inferior basilar hypokinesis. In the repeat echocardiogram, LVEF is 50-55% and there is no description wall motion abnormality. Cardiac catheterization-03/2023-proximal circumflex with 80% stenosis status post PCI. LAD with mild diffuse disease. First diagonal with ostial 99% stenosis, small vessel. Distal LAD with 40-50% stenosis. RCA with moderate diffuse disease. PDA with diffuse stenosis. Overall, diabetes, hypertension, coronary disease, NSTEMI, PCI to circumflex, residual coronary disease, clinically asymptomatic. Continue long-term aspirin. With regard to blood pressure, still seems to be in the higher side before he takes his meds. We can go up on the carvedilol to 25 mg b.i.d.. He is also on valsartan but we do not have any recent labs. Hence we will need to get that from PCP. With regard to diabetes, on Farxiga. Last hemoglobin A1c was 6.6% but we will need to get the most recent ones from PCP. With regard to statins, previously, LDL 41 mg/dL and triglycerides 132 mg/dL. On statins. We will request the most recent labs from PCP. Follow up in 6 months. In the interim, he will call with any concerns. Discussion Notes During the consultation, we discussed the variability in the patient's blood pressure readings and the plan to increase his medication dosage to better manage his hypertension. We also talked about the importance of maintaining a healthy lifestyle, including regular exercise and a balanced diet, to support blood pressure control. The patient was informed about the follow-up appointment in six months to evaluate the effectiveness of the treatment plan. Patient was informed and verbally consented to the use of an ambient scribe for clinic note documentation during this visit. Medications: New carvedilol (Coreg) must administer with a meal/food 25 mg PO BID 180 tabs 3RF 90 days Discontinued carvedilol (Coreg) must administer with a meal/food Discontinued Reason: Doctor's Order 12.5 mg PO BID 90 days 180 tabs 3RF Patient Instructions: - Continue taking your medication as prescribed. - Monitor your blood pressure at home regularly and record the readings. - Maintain your exercise routine and aim for physical activity most days of the week. - Follow a balanced diet and avoid excessive salt intake. - Attend your follow-up appointment in six months. Coding Level of Care Code Est Pt Level 4 (21958) Complex EM visit Add On G2211 Diagnoses Atherosclerotic cardiovascular disease I25.10 NSTEMI (non-ST elevated myocardial infarction) I21.4 Type 2 diabetes mellitus with unspecified complications E11.8 Essential hypertension I10
--- OUTSIDE RECORDS SUMMARY | 2024-10-30 09:03 | XMS_ITS | Encounter Summary ---
Author Organization [facility] Address [address] [place] [address] Care Team Providers Care Tool And Die Repairer Name Role Phone Nain Al MD Primary Care Pr ovider Encounter Details Date Type Department Care Team (Late st Contact Info) Description 07/10/[address] [facility] [address] [place] [id number] Nathanael Yates MD [address] [id number] Encounter for screening for malignant neoplasm of colon Social History Tobacco Use Types Packs/Day Years Used Date Smoking Tobacco: Never Alcohol Use Standard Drinks/Week Comments Yes 0 (1 standard drink = 0.6 oz pur e alcohol) Sex and Gender Information Value Date Recorded Sex Assigned at Not on file Legal Sex Male 1:43 AM EST Gender Identity Not on file Sexual Orientation Not on file documented as of this encounter Plan of Treatment Upcoming Encounters Date Type Department Care Team (Late Contact Info) Description 12/17/2024 9:30 AM EDT Office Visit Endocrinology - [place] [address] [place] [address] Aster Arriola MD [address] [place], [place] [id number] 02/25/2025 8:30 AM EST Office Visit Adult [address] [phone] Nain Al MD [address] [place] [address] documented as of this encounter Procedures Procedure Name Priority Date/Time Associated Diagnosis Comments TISSUE EXAM Routine 07/09/2024 Encounter for screening for malignant neoplasm of colon documented in this encounter Results * Tissue Exam (07/09/2024) Final Diagnosis Terminal ileum, biopsy: Superficial fragments of ileal mucosa with acute ileitis 07/11/2024 9:21 AM [facility] Comment Focal cryptitis is associated with neutrophils within the lamina propria. No unequivocal chronic features are identified. The differential diagnosis includes drug associated enteritis, infectious enteritis, and inflammatory bowel disease. 07/11/2024 9:21 AM [facility] Clinical Information Screening for colorectal malignant neoplasm Ileitis 07/11/2024 9:21 AM [facility] Gross Description A. Small Intestine, Ileum, terminal biopsy: Labeled terminal ileum biopsy . Received in formalin are four soft, john tissue fragments, each measuring approximately 0.1 cm in greatest diameters, which are wrapped in paper and submitted in toto in one cassette, four pieces, multiple levels on one slide. DIMITRI 07/11/2024 9:21 AM [facility] Disclaimer Unless otherwise specified, all tissue is 10% NB formalin fixed and paraffin embedded. 07/11/2024 9:21 AM [facility] Tissue Ileal structure / Unknown 07/09/2024 07/10/2024 9:44 AM EDT us Nathanael Yates MD LAB PATHOLOGY ORDERABLES Colette montes Result [facility] [address] [place] [address], documented in this encounter Visit Diagnoses Diagnosis Encounter for screening for malignant neoplasm of colon documented in this encounter Care Teams Tool And Die Repairer Relationship Specialty Start Date End Date Nain Al MD [address] [place] [id number] PCP - General 06/01/22 documented as of this encounter
--- OUTSIDE RECORDS SUMMARY | 2024-10-30 09:03 | XMS_ITS ---
Author Name [facility] Organization Unknown Care Team Organization Name Specialty Phone Email Start Date End Da jefferson [facility] 09/10/20222023
== END 2024-10-30 10:09 | disposition home or self-care (01) ==
LOC: HO.HCS 08:48
PROVIDERS: PCP Family Medicine; Visit Provider Internal Medicine
DX: I25.10 Atherosclerotic heart disease of native coronary artery without angina pectoris (principal); I21.4 Non-ST elevation (NSTEMI) myocardial infarction; E11.8 Type 2 diabetes mellitus with unspecified complications; I10 Essential (primary) hypertension
CPT/HCPCS: 99214; G2211

== ENCOUNTER → 2024-10-30 08:48 | Outpatient (BNVA) | payer OTHER, SELFPAY | PROVIDERS: PCP Family Medicine; Visit Provider Internal Medicine | DX: I25.10 Atherosclerotic heart disease of native coronary artery without angina pectoris (principal); I21.4 Non-ST elevation (NSTEMI) myocardial infarction; E11.8 Type 2 diabetes mellitus with unspecified complications; I10 Essential (primary) hypertension | CPT/HCPCS: 99212 ==